=== PATIENT | male | born 1985 | race Caucasian/White ===

== ENCOUNTER 2017-12-10 15:27 | Emergency (ER) | payer BC ==
[2017-12-10] MEDS ORDERED: Acetaminophen/oxyCODONE 325-5 MG Tab PO ONE (16:47)
[2017-12-10] MEDS ORDERED: Diphtheria,Pertussis(Acell),Tetanus Vaccine 0.5 ML SDV IM ONE (16:47)
[2017-12-10] MEDS ORDERED: Lidocaine 1% with EPINEPHrine 1:100,000 20 ML MDV INJECT ONE (17:49)
[2017-12-10] MEDS ORDERED: Lidocaine 1% with EPINEPHrine 1:100,000 20 ML MDV ONE (17:55)
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
--- NOTE | 2017-12-13 13:51 | CR ---
Left hand: Four views of the left hand were obtained. Comparison: No previous study. Joint spaces are preserved. No fracture, dislocation or other bony abnormality is seen. Impression: 1. No abnormality is identified on left hand exam. Diagnostic code #1
== END 2017-12-10 18:36 | disposition home or self-care (01) ==
LOC: JD.ED 15:27
DX: S61.412A Laceration without foreign body of left hand, initial encounter (principal); Z23 Encounter for immunization; I10 Essential (primary) hypertension; F41.9 Anxiety disorder, unspecified; Z79.899 Other long term (current) drug therapy; Z88.1 Allergy status to other antibiotic agents; W26.0XXA Contact with knife, initial encounter
CPT/HCPCS: 12001; 73130; 90471; 90715; 99283; A9270

== ENCOUNTER 2018-12-03 17:51 | Emergency (ER) | payer BC ==
[2018-12-03] MEDS ORDERED: LORazepam 2 MG/ML SDV IVPUSH ONE (18:10)
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
[2018-12-03] MEDS ORDERED: Potassium Chloride 10 MEQ in Premix Bag 1 BAG IV ONE (19:52)
[2018-12-03] MEDS ORDERED: Dextrose 5%-Lactated Ringers 1,000 ML IV SCH ×2 (20:00→20:15)
[2018-12-03 20:11] LABS: HEMOGLOBIN A1C 6.6 % (4.50-6.20)
[2018-12-03] MEDS ORDERED: Potassium Chloride 10 MEQ in Premix Bag 1 BAG IV SCH (20:15)
--- NOTE | 2018-12-04 14:15 | CR ---
Chest: Portable view of the chest was obtained. Comparison: No prior chest x-ray. Heart size and mediastinum are normal. Lungs are clear. Bony structures are unremarkable. Impression: 1. Nothing acute is seen on portable chest x-ray. Diagnostic code #1
== END 2018-12-03 22:04 | disposition home or self-care (01) ==
LOC: JD.ED 17:51
DX: R07.89 Other chest pain (principal); E87.2 Acidosis; E87.6 Hypokalemia; F41.9 Anxiety disorder, unspecified; I10 Essential (primary) hypertension; Z88.1 Allergy status to other antibiotic agents
CPT/HCPCS: 36415; 71045; 80053; 82009; 83036; 83735; 84484; 85025; 93005; 96365; 96375; 99285; G0480; J2060; J3480; J7042; 93010

== ENCOUNTER 2021-05-01 18:18 | Emergency (ER) | payer BC ==
[2021-05-01] MEDS ORDERED: Sodium Chloride 0.9% 10 ML Syringe FLUSH PRN (18:57)
[2021-05-01] MEDS ORDERED: Labetalol 100 MG/20 ML MDV IVPUSH ONE (18:57)
--- NOTE | 2021-05-01 19:24 | CR ---
Chest: 2 views of the chest were obtained. Comparison: Prior chest x-ray of 12/03/18. Heart size and mediastinum are within normal limits. Lungs are clear with no acute parenchymal change. Bony structures appear within normal limits for the patient's age. Impression: 1. Nothing acute is seen on 2 view chest x-ray. Diagnostic code #1
[2021-05-01] MEDS ORDERED: Losartan 50 MG Tab PO ONE (19:34)
--- NOTE | 2021-05-01 19:49 | EDM.PDOC ---
ED HPI GENERAL MEDICAL PROBLEM - General Chief Complaint: Cardiovascular Problem Stated Complaint: HIGH BP Time Seen by Provider: 05/01/21 18:26 Source of Information: Reports: Patient, RN Notes Reviewed History Limitations: Reports: No Limitations - History of Present Illness INITIAL COMMENTS - FREE TEXT/NARRATIVE: Patient is a 36-year-old male presenting to the emergency department with complaints of high blood pressure. He reports that for the last few days, he has been 150-170 systolically at home. Prior to this, he reports being in the 130s. Pressure on arrival to ER was 226/133. He states that he has significant "white coat syndrome ". He reports that he is "kind of flipping out "about being in the ER. He has recently been experiencing heartburn related to having to drink a lot of Powerade to stay hydrated in the heat at work. He feels this could be contributing to his higher blood pressure. He does have a history of hypertension for which he was previously prescribed losartan/hydrochlorthiazide 100 mg / 25 mg. He stopped taking this approximately 1 year ago because it was making him lightheaded. Denies any chest pain or shortness of breath. He has had no vision changes or dizziness. - Related Data Allergies Allergy/AdvReac Type Severity Reaction Status Date / Time [facility] Allergy Severe Rash Verified 05/01/21 18:30 erythromycin base AdvReac Severe Other Verified 05/01/21 18:30 Home Meds: Home Meds Fish Oil/[place]-3 Fatty Acids [Fish Oil 1,000 MG] 1 each PO DAILY 05/01/21 [History] Losartan [Cozaar] 50 mg PO DAILY #30 tab 05/01/21 [Rx] Melatonin 5 mg PO BEDTIME 05/01/21 [History] Multivit-Min/Folic/Vit K/Lycop [Men's Multivitamin Tablet] 1 each PO DAILY 05/01/21 [History] Vitamin B Complex 1 each PO DAILY 05/01/21 [History] hydroCHLOROthiazide [Hydrochlorothiazide] 25 mg PO DAILY #30 tablet 05/01/21 [Rx] Past Medical History Cardiovascular History: Reports: Hypertension Gastrointestinal History: Reports: GERD Genitourinary History: Reports: Other (See Below) Other Genitourinary History: hernia repair Psychiatric History: Reports: Anxiety Endocrine/Metabolic History: Reports: Obesity/BMI 30+ - Past Surgical History Male Surgical History: Reports: Vasectomy Social & Family History - Family History Family Medical History: No Pertinent Family History - Tobacco Use Tobacco Use Status *Q: Never Tobacco User - Caffeine Use Caffeine Use: Reports: Coffee - Recreational Drug Use Recreational Drug Use: No - Living Situation & Occupation Living situation: Reports: Occupation: Employed ED ROS GENERAL - Review of Systems Review Of Systems: Comprehensive ROS is negative, except as noted in HPI. ED EXAM, GENERAL - Physical Exam Exam: See Below General Appearance: Alert, WD/WN, No Apparent Distress Respiratory/Chest: No Respiratory Distress, Lungs Clear, Normal Breath Sounds, No Accessory Muscle Use, Chest Non-Tender Cardiovascular: Normal Peripheral Pulses, Regular Rate, Rhythm, No Edema, No Gallop, No JVD, No Murmur, No Rub Neurological: Alert, Oriented, CN II-XII Intact, Normal Cognition, Normal Gait, Normal Reflexes, No Motor/Sensory Deficits Psychiatric: Normal Affect, Normal Mood Skin Exam: Warm, Dry, Intact, Normal Color, No Rash #1 Interpretation EKG Date: 05/01/21 Time: 19:14 Rhythm: NSR Rate (Beats/Min): 86 [place]: Normal P-Wave: Present QRS: Normal ST-T: Normal QT: Normal Course - Vital Signs Last Recorded V/S: Last Vital Signs Temp 97.4 F 05/01/21 18:26 Pulse 99 05/01/21 18:26 Resp 16 05/01/21 18:26 BP 161/105 H 05/01/21 20:01 Pulse Ox 100 05/01/21 18:26 - Orders/Labs/Meds Orders: Active Orders 24 hr Category Date Time Status Peripheral IV Insertion Adult [OM.PC] Stat Oth 05/01/21 18:56 Ordered Labs: Laboratory Tests 05/01/21 05/01/21 Range/Units 18:43 18:43 WBC 8.78 (4.23-9.07) K/mm3 RBC 5.02 (4.63-6.08) M/mm3 Hgb 15.1 (13.7-17.5) gm/dl Hct 44.1 (40.1-51.0) % MCV 87.8 (79.0-92.2) fl MCH 30.1 (25.7-32.2) pg MCHC 34.2 (32.2-35.5) g/dl RDW Std Deviation 41.4 (35.1-43.9) fL Plt Count 307 (163-337) K/mm3 MPV 8.8 L (9.4-12.3) fl Neut % (Auto) 51.5 (34.0-67.9) % Lymph % (Auto) 35.2 (21.8-53.1) % [place] % (Auto) 10.5 (5.3-12.2) % Eos % (Auto) 1.8 (0.8-7.0) Baso % (Auto) 0.7 (0.1-1.2) % Neut # (Auto) 4.52 (1.78-5.38) K/mm3 Lymph # (Auto) 3.09 (1.32-3.57) K/mm3 [place] # (Auto) 0.92 H (0.30-0.82) K/mm3 Eos # (Auto) 0.16 (0.04-0.54) K/mm3 Baso # (Auto) 0.06 (0.01-0.08) K/mm3 Sodium 140 (136-145) mEq/L Potassium 3.7 (3.5-5.1) mEq/L Chloride 101 (98-107) mEq/L Carbon Dioxide 27 (21-32) mEq/L Anion Gap 15.7 H (5-15) BUN 20 H (7-18) mg/dL Creatinine 1.0 (0.7-1.3) mg/dL Est Cr Clr Drug Dosing 112.09 mL/min Estimated GFR (MDRD) > 60 (>60) mL/min BUN/Creatinine Ratio 20.0 H (14-18) Glucose 117 H (70-99) mg/dL Calcium 9.3 (8.5-10.1) mg/dL Total Bilirubin 0.3 (0.2-1.0) mg/dL AST 19 (15-37) U/L ALT 28 (16-63) U/L Alkaline Phosphatase 76 (46-116) U/L Troponin I < 0.017 (0.00-0.056) ng/mL Total Protein 8.3 H (6.4-8.2) g/dl Albumin 4.5 (3.4-5.0) g/dl Globulin 3.8 gm/dL Albumin/Globulin Ratio 1.2 (1-2) Meds: Medications Discontinued Medications Generic Name Dose Route Start Last Admin Trade Name Freq PRN Reason Stop Dose Admin Labetalol HCl 10 mg 05/01/21 18:57 05/01/21 19:12 Labetalol 100 Mg/20 Ml Mdv IVPUSH 05/01/21 18:58 10 mg ONETIME ONE Administration Losartan Potassium 50 mg 05/01/21 19:34 05/01/21 20:01 Losartan 50 Mg Tab PO 05/01/21 19:35 50 mg ONETIME ONE Administration Sodium Chloride 10 ml 05/01/21 18:57 Sodium Chloride 0.9% 10 Ml Syringe FLUSH ASDIRECTED PRN Keep Vein Open - Re-Assessments/Exams Free Text/Narrative Re-Assessment/Exam: Patient is a 36-year-old male presenting to the emergency department with complaints of high blood pressure. He does have a history of hypertension but stopped his medications a year ago because they are making him lightheaded. Blood pressure in triage was 226/133. Exam is overall unremarkable. Blood work, chest x-ray, EKG, and labetalol 10 mg IV. 05/01/21 19:47 Work-up is grossly unremarkable. EKG shows normal sinus rhythm at 86. Chest x- ray is normal. Blood work is overall normal. Troponin is negative. Patient's blood pressure improved to 164/114. I have ordered losartan 50 mg p.o. to be gi trudy now. I suspect the 100 mg of losartan was too high of a dose for him given that his blood pressures in the clinic tend to be higher given his whitecoat syndrome. He will also be started on hydrochlorothiazide 25 mg. Commend that he check his blood pressures daily and keep a log of them. Follow-up with his primary care provider at his next available visit. Discharge instructions as documented. Departure - Departure Time of Disposition: 19:47 Disposition: Home, Self-Care 01 Condition: Good Clinical Impression: Hypertensive heart disease Qualifiers: Heart failure presence: unspecified whether heart failure present Qualified Code(s): I11.9 - Hypertensive heart disease without heart failure Prescriptions: Losartan [Cozaar] 50 mg PO DAILY #30 tab hydroCHLOROthiazide [Hydrochlorothiazide] 25 mg PO DAILY #30 tablet Instructions: Hypertension, Adult, [id number] Referrals: Jarred Hillman MD [Primary Care Provider] - Forms: ED Department Discharge Additional Instructions: You were seen in the emergency department today for high blood pressure. Work- up included blood work, EKG, and chest x-ray. Results of your work-up were found to be normal. While in the ER, he received a small dose of blood pressure meds 3 IV as well as your first dose of losartan 50 mg. Prescriptions have been sent for losartan and hydrochlorothiazide. Take these medications as prescribed. Recommend checking her blood pressures daily and keeping a log of them. Follow-up with your primary care provider at his next available visit. Return to ER for any new or worsening symptoms. Sepsis Event Note (ED) - Evaluation Sepsis Screening Result: No Definite Risk - Focused Exam Vital Signs: Vital Signs Temp Pulse Resp BP BP Pulse Ox 05/01/21 20:01 161/105 H 05/01/21 18:26 97.4 F 99 16 226/133 H 100 - My Orders Last 24 Hours: My Active Orders 05/01/21 18:56 Peripheral IV Insertion Adult [OM.PC] Stat - Assessment/Plan Last 24 Hours: My Active Orders 05/01/21 18:56 Peripheral IV Insertion Adult [OM.PC] Stat
== END 2021-05-01 20:06 | disposition home or self-care (01) ==
LOC: JD.ED 18:18
DX: I11.9 Hypertensive heart disease without heart failure (principal); E66.9 Obesity, unspecified; Z68.30 Body mass index [BMI] 30.0-30.9, adult; Z88.1 Allergy status to other antibiotic agents; Z79.899 Other long term (current) drug therapy
CPT/HCPCS: 36415; 71046; 80053; 84484; 85025; 93005; 96374; 99284; A9270; J3490; 93010

== ENCOUNTER 2021-05-12 21:06 | Emergency (ER) | payer BC ==
[2021-05-12] MEDS ORDERED: Alum Hydrox/Mag Hydrox/Simeth 30 ML, Lidocaine 2% 15 ML PO STA ×2 (22:16)
--- NOTE | 2021-05-12 22:23 | EDM.PDOC ---
ED HPI GENERAL MEDICAL PROBLEM - General Chief Complaint: Chest Pain Stated Complaint: CHEST PAIN Time Seen by Provider: 05/12/21 21:48 Source of Information: Reports: Patient History Limitations: Reports: No Limitations - History of Present Illness INITIAL COMMENTS - FREE TEXT/NARRATIVE: Mr. Templeton is a very pleasant 36-year-old gentleman with a past medical history significant for presumptive hypertension and presumptive GERD, who was seen in this ED on 05/01/2021 for elevated blood pressure. He was started on losartan and hydrochlorothiazide, along with Prilosec QAM. He now presents the ED stating that he forgot to take his Prilosec this morning, then developed burning epigastric pain which he has been experiencing all day. His pain is made worse after eating. He has not experienced any chest pain, only epigastric pain. No associated nausea, dyspnea, or diaphoresis. He states that TUMS helps with his symptoms, but that Pepto-Bismol has not. He states that he went to the walk-in clinic today and that they recommended that he take 2 Prilosec at the same time, which he did, but his symptoms have still not improved. Here in the ED, the patient's initial BP is found to be elevated at 183/116 with slight tachycardia of 106 bpm. He is afebrile, saturating 100% on room air. He appears to be comfortable, in no acute distress. The patient states that he f eels nervous about his blood pressure. He has a history of untreated anxiety. The patient states that he was diagnosed with hypertension many years ago, and was initially treated on losartan, however, he states that he became hypotensive on it, therefore he eventually discontinued it. He states that he has been taking the losartan/hydrochlorothiazide that was prescribed on 05/01/2021. The patient acknowledges that he drinks a six pack of beer every day since he was 21 years old. Prior to today, the patient denies having a recent fever, chills, sore throat, ear pain, nasal or sinus congestion, cough, dyspnea, chest pain, palpitations, nausea, vomiting, constipation, diarrhea, abdominal pain, urinary symptoms, recent weight gain or weight loss, recent bloody bowel movements or black bowel movements, recent joint aches, headaches, or rashes. The patient's PCP is Dr. Jarred Hillman. He has an appointment to see Dr. Hillman on 05/21/2021. He has not received a COVID vaccination. Treatments PAYROLL MANAGER: Reports: Other Medication(s) Other Treatments PAYROLL MANAGER: prilosec PO around noon today Epigastric Pain Score (Numeric/FACES): 2 - Related Data Allergies Allergy/AdvReac Type Severity Reaction Status Date / Time cefaclor [From Ceclor] Allergy Severe Rash Verified 05/12/21 21:14 erythromycin base AdvReac Severe Other Verified 05/12/21 21:14 Home Meds: Home Meds Fish Oil/[place]-3 Fatty Acids [Fish Oil 1,000 MG] 1 each PO DAILY 05/01/21 [History] Losartan [Cozaar] 50 mg PO DAILY #30 tab 05/01/21 [Rx] Melatonin 5 mg PO BEDTIME 05/01/21 [History] Multivit-Min/Folic/Vit K/Lycop [Men's Multivitamin Tablet] 1 each PO DAILY 05/01/21 [History] Vitamin B Complex 1 each PO DAILY 05/01/21 [History] hydroCHLOROthiazide [Hydrochlorothiazide] 25 mg PO DAILY #30 tablet 05/01/21 [Rx] Omeprazole Magnesium [Prilosec Otc] 20 mg PO BID 05/12/21 [History] Past Medical History Cardiovascular History: Reports: Hypertension Gastrointestinal History: Reports: GERD Psychiatric History: Reports: Anxiety (untreated) Endocrine/Metabolic History: Reports: Obesity/BMI 30+ - Past Surgical History HEENT Surgical History: Reports: Adenoidectomy, Tonsillectomy GI Surgical History: Reports: Hernia, Abdominal (periumbilical) Male Surgical History: Reports: Vasectomy Musculoskeletal Surgical History: Reports: Other (See Below) (Right wrist reconstruction) Social & Family History - Tobacco Use Tobacco Use Status *Q: Former Tobacco User Years of Tobacco use: 10 Packs/Tins Daily: 0.3 Month/Year Tobacco Last Used: Quit 2016 Tobacco Use Comment: Started smoking 2006 - Caffeine Use Caffeine Use: Reports: Coffee - Alcohol Use Alcohol Use History: Yes Days Per Week of Alcohol Use: 7 Number of Drinks Per Day: 6 Total Drinks Per Week: 42 Alcohol Use Frequency: Daily - Recreational Drug Use Recreational Drug Use: Yes Drug Use in Last 12 Months: No Recreational Drug Type: Reports: Marijuana/Hashish (last smoked 2005) - Living Situation & Occupation Living situation: Reports: , with Spouse, with Family (4 kids) Occupation: Employed (HVAC repair) ED ROS GENERAL - Review of Systems Review Of Systems: Comprehensive ROS is negative, except as noted in HPI. ED EXAM, GENERAL - Physical Exam Exam: See Below Exam Limited By: No Limitations General Appearance: Alert, WD/WN, No Apparent Distress Eye Exam: Bilateral Eye: EOMI, Normal Inspection Ears: Normal External Exam, Hearing Grossly Normal Nose: Normal Inspection Throat/Mouth: Normal Inspection, Normal Lips, Normal Voice, No Airway Compromise Head: Atraumatic, Normocephalic Neck: Normal Inspection, Full Range of Motion Respiratory/Chest: No Respiratory Distress, Lungs Clear, Normal Breath Sounds, No Accessory Muscle Use, Chest Non-Tender Cardiovascular: Normal Peripheral Pulses, Regular Rate, Rhythm, No Edema, No Gallop, No JVD, No Murmur, No Rub Peripheral Pulses: 3+: Radial (L), Radial (R) GI/Abdominal: Normal Bowel Sounds, Soft, No Organomegaly, No Distention, No Abnormal Bruit, No Mass, Tender (Minimal, in the epigastrium only. Nontender elsewhere.) Back Exam: Normal Inspection, Full Range of Motion, NT Extremities: Normal Inspection, Normal Range of Motion, No Pedal Edema, Normal Capillary Refill Neurological: Alert, Oriented, Normal Cognition, No Motor/Sensory Deficits Psychiatric: Normal Affect Skin Exam: Warm, Dry, Intact, Normal Color, No Rash #1 Interpretation EKG Date: 05/12/21 Time: 21:32 Rhythm: NSR Rate (Beats/Min): 93 [place]: Normal P-Wave: Enlarged (possible LAE) QRS: Normal ST-T: Normal QT: Normal Comparison: No Change (05/01/2021) Course - Vital Signs Last Recorded V/S: Last Vital Signs Temp 37.7 C 05/12/21 21:14 Pulse 106 H 05/12/21 21:14 Resp 14 05/12/21 21:14 BP 183/116 H 05/12/21 21:14 Pulse Ox 100 05/12/21 21:14 - Orders/Labs/Meds Meds: Medications Discontinued Medications Generic Name Dose Route Start Last Admin Trade Name Freq PRN Reason Stop Dose Admin Al Hydroxide/Mg Hydroxide 30 0 ml 05/12/21 22:16 05/12/21 22:35 ml/ Lidocaine HCl 15 ml PO 05/12/21 22:17 45 ml ONETIME STA Administration - Re-Assessments/Exams Free Text/Narrative Re-Assessment/Exam: 05/12/21 22:16 As above, the patient has been suffering from burning epigastric pain on and off all day today, after he forgot to take his Prilosec this morning, but then took 2 tablets later today. His symptoms are improved if he takes TUMS, but only briefly. Pepto-Bismol did not help with his symptoms. His BP is elevated at 183/116, although he acknowledges that he is anxious. He has been taking losartan and hydrochlorothiazide. He has been checking his BP, but not under restful conditions. An ECG, obtained at triage, shows no ischemic changes. His physical exam reveals mild epigastric tenderness, but is otherwise unremarkable. The patient will be given a GI cocktail here in the ED, but no further evaluation is necessary. Going forward, I will recommend that he start taking Prilosec 1 tablet twice a day, and that he begin checking his blood pressure 2-3 times a week, but only under restful conditions. He should write the numbers down, then present them to Dr. Hillman when he sees him on Wednesday the . Departure - Departure Time of Disposition: 22:19 Disposition: Home, Self-Care 01 Condition: Good Clinical Impression: GERD (gastroesophageal reflux disease), Elevated blood pressure reading - Discharge Information *PRESCRIPTION DRUG MONITORING PROGRAM REVIEWED*: Not Applicable *COPY OF PRESCRIPTION DRUG MONITORING REPORT IN PATIENT LULU: Not Applicable Instructions: Gastroesophageal Reflux Disease, Adult Referrals: Jarred Hillman MD [Primary Care Provider] - Forms: ED Department Discharge Additional Instructions: You were seen in the emergency room for acid reflux pain today, after forgetting to take your Prilosec this morning. Work-up in the ER included an ECG, which was unremarkable. You were treated with a GI cocktail in the ER. Going forward, we recommend that you start taking 1 tablet of Prilosec twice a day, about 12 hours apart. We recommend that you discontinue drinking alcohol. Alcohol can not only cause gastritis, but can elevate your blood pressure, as well. We recommend that you continue to take your losartan and hydrochlorothiazide as prescribed. We recommend that you check your blood pressure 2-3 times a week, at different times of the day, but only under restful conditions = you are sitting quietly for at least 5, and preferably 15 minutes, that the arm that you are checking your blood pressure in is supported, with the cuff at the level of your heart, and that you are not feeling anxious, in pain, or ill. Write the numbers down, and present them to Dr. Hillman when you follow-up with him on 05/21/2021. If you continue to have acid reflux symptoms despite taking Prilosec twice a day, Dr. Hillman may want to schedule you for an EGD (a scope of your stomach). If any other problems, please do not hesitate to return to the ER. Sepsis Event Note (ED) - Evaluation Sepsis Screening Result: No Definite Risk - Focused Exam Vital Signs: Vital Signs Temp Pulse Resp BP Pulse Ox 05/12/21 21:14 37.7 C 106 H 14 183/116 H 100
== END 2021-05-12 22:44 | disposition home or self-care (01) ==
LOC: JD.ED 21:06
DX: K21.9 Gastro-esophageal reflux disease without esophagitis (principal); R03.0 Elevated blood-pressure reading, without diagnosis of hypertension; I10 Essential (primary) hypertension; E66.9 Obesity, unspecified; Z88.1 Allergy status to other antibiotic agents; Z87.891 Personal history of nicotine dependence; Z68.29 Body mass index [BMI] 29.0-29.9, adult
CPT/HCPCS: 93005; 99284; A9270; 93010; 99283